=== PATIENT | female | born 2000 | race Hispanic/Latino ===

== ENCOUNTER 2022-02-18 10:47 | Emergency (ER) | payer OTHER ==
[2022-02-18 11:16] LABS: Urine Blood 3+ (Negative); Urine Glucose Trace (Negative); Urine Protein 3+ (Negative); Urine Specific Gravity 1.025 (1.005-1.030)
[2022-02-18] MEDS ORDERED: NA CHLORIDE 0.9% 1,000 ML ONE ×2 (11:19→13:47)
[2022-02-18 11:59] LABS: Absolute Lymphocytes (CBC) 1.1 K/uL (0.7-4.9); Hematocrit 32.2 % (36.0-45.0); Lymphocytes % 6.4 % (15.3-44.8); MCV 91.6 fL (80-100); MPV 9.6 fL (7.6-11.3); RBC Red Blood Cell Count 3.51 M/uL (3.86-4.86)
[2022-02-18 12:23] LABS: Potassium 3.6 mmol/L (3.5-5.1)
[2022-02-18 12:24] LABS: Urine Specific Gravity/Preg 1.025 (1.005-1.030)
[2022-02-18 12:31] LABS: Blood Morphology Comment NOT SEEN (NOT SEEN); Platelet Estimate ADEQ; White Blood Cell Scan OK (OK)
[2022-02-18] MEDS ORDERED: CEFTRIAXONE 1000 MG/VIAL ONE (12:36)
[2022-02-18] MEDS ORDERED: NA CHLORIDE 0.9% 100 ML IV ONE (12:38)
--- NOTE | 2022-02-18 12:55 | RAD REPORT ---
EXAM DESCRIPTION: US - Transvaginal OB - 02/18/2022 12:27 pm CLINICAL HISTORY: ABD CRAMPING, COMPARISON: Transvaginal OB dated 02/16/2022 FINDINGS: No gestational sac or sac remnant seen in the endometrial cavity. No measurable amount of hemorrhagic products seen. Uterus remains normal size with no myometrial abnormality. Left ovary is unremarkable. No left adnexal mass identifiable. Right adnexa is obscured. Right ovary could not be identified. No blood or fluid in the cul de sac. IMPRESSION: No gestational sac or sac remnant. No retained products of conception seen in the endome trial cavity. No left ovarian or left adnexal abnormality. Right ovary and right adnexa are obscured by bowel.
[2022-02-18] MEDS ORDERED: METHYLERGONOVINE 0.2MG/ML AMP IM ONE (13:47)
[2022-02-18] MEDS ORDERED: METHYLERGONOVINE 0.2 MG TAB PO ONE (14:00)
[2022-02-18 14:09] LABS: Absolute Lymphocytes (CBC) 0.8 K/uL (0.7-4.9); Hematocrit 27.6 % (36.0-45.0); Lymphocytes % 4.8 % (15.3-44.8); MCV 91.7 fL (80-100); RBC Red Blood Cell Count 3.01 M/uL (3.86-4.86)
[2022-02-18 14:17] LABS: Blood Morphology Comment NOT SEEN (NOT SEEN); Platelet Estimate ADEQ; White Blood Cell Scan OK (OK)
--- NOTE | 2022-02-18 14:51 | EDPHYS ---
Physician Documentation [facility] Name: Edith Valladares Age: 21 yrs Sex: Female : 2000 Arrival Date: 02/18/2022 Time: 10:48 Bed 18 Private MD: Tom Hernandez B ED Physician Anshu Ramirez HPI: 02/18 13:23 This 21 yrs old Female presents to ER via Ambulatory with complaints of марина Syncope, Vaginal Bleeding, + Preg <12wks. 13:23 The patient has experienced near-syncope, almost passed out, felt dizzy. Onset: The марина symptoms/episode began/occurred 2 day(s) ago. Duration: This was a single episode, that lasted 10 second(s). Context: the episode(s) was witnessed, by family. Associated injury: The patient did not suffer any apparent associated injury. Associated signs and symptoms: Pertinent positives: lightheadedness. Current symptoms: Currently, the patient is not experiencing any symptoms. The patient has not experienced similar symptoms in the past. 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 - Social history:: Smoking status: Patient denies any tobacco usage or history of. ROS: 13:23 Constitutional: Negative for fever, chills, and weight loss, Eyes: Negative for injury, марина pain, redness, and discharge, ENT: Negative for injury, pain, and discharge, Neck: Negative for injury, pain, and swelling, Cardiovascular: Negative for chest pain, palpitations, and edema, Respiratory: Negative for shortness of breath, cough, wheezing, and pleuritic chest pain, Abdomen/GI: Negative for abdominal pain, nausea, vomiting, diarrhea, and constipation, Back: Negative for injury and pain, MS/Extremity: Negative for injury and deformity, Skin: Negative for injury, rash, and discoloration, Neuro: Negative for headache, weakness, numbness, tingling, and seizure, Psych: Negative for depression, anxiety, suicide ideation, homicidal ideation, and hallucinations, Allergy/Immunology: Negative for hives, rash, and allergies, Endocrine: Negative for neck swelling, polydipsia, polyuria, polyphagia, and marked weight changes, Hematologic/Lymphatic: Negative for swollen nodes, abnormal bleeding, and unusual bruising. 13:23 : Positive for pelvic pain, vaginal bleeding. Exam: 13:23 Constitutional: This is a well developed, well nourished patient who is awake, alert, марина and in no acute distress. Head/Face: Normocephalic, atraumatic. Eyes: Pupils equal round and reactive to light, extra-ocular motions intact. Lids and lashes normal. Conjunctiva and sclera are non-icteric and not injected. Cornea within normal limits. Periorbital areas with no swelling, redness, or edema. ENT: Nares patent. No nasal discharge, no septal abnormalities noted. Tympanic membranes are normal and external auditory canals are clear. Oropharynx with no redness, swelling, or masses, exudates, or evidence of obstruction, uvula midline. Mucous membranes moist. Neck: Trachea midline, no thyromegaly or masses palpated, and no cervical lymphadenopathy. Supple, full range of motion without nuchal rigidity, or vertebral point tenderness. No Meningismus. Chest/axilla: Normal chest wall appearance and motion. Nontender with no deformity. No lesions are appreciated. Cardiovascular: Regular rate and rhythm with a normal S1 and S2. No gallops, murmurs, or rubs. Normal PMI, no JVD. No pulse deficits. Respiratory: Lungs have equal breath sounds bilaterally, clear to auscultation and percussion. No rales, rhonchi or wheezes noted. No increased work of breathing, no retractions or nasal flaring. Abdomen/GI: Soft, non-tender, with normal bowel sounds. No distension or tympany. No guarding or rebound. No evidence of tenderness throughout. Back: No spinal tenderness. No costovertebral tenderness. Full range of motion. Skin: Warm, dry with normal turgor. Normal color with no rashes, no lesions, and no evidence of cellulitis. MS/ Extremity: Pulses equal, no cyanosis. Neurovascular intact. Full, normal range of motion. Neuro: Awake and alert, GCS 15, oriented to person, place, time, and situation. Cranial nerves II-XII grossly intact. Motor strength 5/5 in all extremities. Sensory grossly intact. Cerebellar exam normal. Normal gait. Psych: Awake, alert, with orientation to person, place and time. Behavior, mood, and affect are within normal limits. 13:49 : Pelvic Exam: External exam: is normal, Speculum exam: moderate bleeding, blood марина clots in vaginal vault, os that is closed, no tissue in cervix is seen, no tissue in vagina is seen, Rectal exam: is not applicable, Sexual behavior: the patient is sexually active, and reports a single partner. Vital Signs: 10:58 BP 126 / 74; Pulse 105; Resp 16; Temp 98.6(O); Pulse Ox 100% ; Weight 66.68 kg; Height jh5 5 ft. 1 in. (154.94 cm); Pain 0/10; 12:17 BP 92 / 70; Pulse 100; Resp 16; Pulse Ox 99% ; bp 12:50 BP 109 / 62; Pulse 107; Resp 16; Pulse Ox 100% ; bp 10:58 Body Mass Index 27.78 (66.68 kg, 154.94 cm) 5 MDM: 10:49 Patient medically screened. марина 13:23 Differential diagnosis: ectopic , kidney stone, menometrorrhagia, menorrhea, марина nonspecific abdominal pain, ovarian cyst, placenta previa, hemorrhage, uterine fibroids, urinary tract infection. Differential Diagnosis: cardiac arrhythmia, drug effect, idiopathic syncope, , sepsis, vasovagal episode. Data reviewed: vital signs, nurses notes, lab test result(s), radiologic studies, ultrasound. Data interpreted: awake overnight monitor: rate is 107 beats/min, rhythm is regular, Pulse oximetry: on room air is 100 %. Test interpretation: by ED physician or midlevel provider: ECG, plain radiologic studies. Counseling: I had a detailed discussion with the patient and/or guardian regarding: the historical points, exam findings, and any diagnostic results supporting the discharge/admit diagnosis, lab results, radiology results. 02/18 10:50 Order name: Abo/rh Typing; Complete Time: 13: [facility] 02/18 10:50 Order name: Basic Metabolic Panel; Complete Time: 13: [facility] 02/18 10:50 Order name: CBC with Diff; Complete Time: 13: [facility] 02/18 10:50 Order name: Quantitative Hcg; Complete Time: 13: [facility] 02/18 11:16 Order name: Urine Dipstick-Ancillary; Complete Time: 11:28 EDAK 02/18 11:17 Order name: Urine --Ancillary (enter results); Complete Time: 12:25 em 02/18 10:50 Order name: US Transvaginal Ob; Complete Time: 13:02 [facility] 02/18 12:03 Order name: CBC Smear Scan; Complete Time: 13:02 [facility] 02/18 13:45 Order name: CBC with Diff: NOW; Complete Time: 14:49 [facility] 02/18 14:17 Order name: CBC Smear Scan; Complete Time: 14:49 EDAK 02/18 10:50 Order name: IV Saline Lock; Complete Time: 11:52 [facility] 02/18 10:50 Order name: Labs collected and sent; Complete Time: 11:52 [facility] 02/18 10:50 Order name: NPO; Complete Time: 11:18 [facility] 02/18 10:50 Order name: Urine Dipstick-Ancillary (obtain specimen); Complete Time: 11:17 [facility] 02/18 10:50 Order name: Urine Test (obtain specimen); Complete Time: 11:17 [facility] 02/18 11:40 Order name: Pelvic Exam Setup; Complete Time: 13:43 марина Administered Medications: 11:50 Drug: NS 0.9% 1000 ml Route: IV; Rate: 1 bolus; Site: right forearm; bp 12:40 Drug: Rocephin (cefTRIAXone) 1 grams Route: IV; Rate: per protocol; Site: right forearm;bp 13:55 Drug: NS 0.9% 1000 ml Route: IV; Rate: 1 bolus; Site: right forearm; bp 13:55 Drug: METHERgine 0.2 mg Route: IM; Site: right deltoid; bp Disposition Summary: 02/18/22 14:50 Discharge Ordered Location: Home марина Problem: new марина Symptoms: have improved марина Condition: Stable марина Diagnosis - Incomplete spontaneous with other complications - BLEEDING,LEUKOCYTOSIS марина - UTI/ Urinary tract infection, site not specified марина - Elevated white blood cell count марина Followup: марина - With: - When: 1 - 2 days - Reason: Recheck today's complaints, Continuance of care, Re-evaluation by your physician Discharge Instructions: - Discharge Summary Sheet марина - Incomplete Miscarriage марина - Miscarriage марина - Miscarriage, [id number] марина Forms: - Medication Reconciliation Form марина - Thank You Letter марина - Antibiotic Education [facility] - Prescription Opioid Use [facility] Prescriptions: - Methergine 0.2 mg Oral tablet - take 1 tablet by ORAL route every 6 hours; 4 tablet; Refills: 0, Product [facility] Selection Permitted - Augmentin 875-125 mg Oral Tablet - take 1 tablet by ORAL route every 12 hours for 7 days; 44 tablet; Refills: 0, [facility] Product Selection Permitted Signatures: Dispatcher [employer] Anshu Turcios MD MD cha Peltier, Brian, RN RN Jeanette Barrios RN RN jh5
--- NOTE | 2022-02-18 14:51 | ER ---
Nurse's Notes [facility] Name: Edith Valladares Age: 21 yrs Sex: Female : 2000 Arrival Date: 02/18/2022 Time: 10:48 Bed 18 Private MD: Tom Hernandez B Diagnosis: Incomplete spontaneous with other complications-BLEEDING,LEUKOCYTOSIS;UTI/ Urinary tract infection, site not specified;Elevated white blood cell count Presentation: 02/18 10:58 Chief complaint: Patient states: 11 weeks , started spotting a couple days ago [facility] and then heavy bleeding started last night, pt is passing clots. Coronavirus screen: Vaccine status: Patient reports receiving the 1st dose of the Covid vaccine. Client denies travel out of the [place] in the last 14 days. At this time, the client does not indicate any symptoms associated with coronavirus-19. Ebola Screen: Patient negative for fever greater than or equal to 101.5 degrees Fahrenheit, and additional compatible Ebola Virus Disease symptoms Patient denies exposure to infectious person. Patient denies travel to an Ebola-affected area in the 21 days before illness onset. Initial Sepsis Screen: Does the patient meet any 2 criteria? No. Patient's initial sepsis screen is negative. Does the patient have a suspected source of infection? No. Patient's initial sepsis screen is negative. Risk Assessment: Do you want to hurt yourself or someone else? Patient reports no desire to harm self or others. Onset of symptoms was February 16, 2022. 10:58 Method Of Arrival: Ambulatory [facility] 10:58 Acuity: JOSE JUAN 3 [facility] Triage Assessment: 10:59 General: Appears in no apparent distress. uncomfortable, well groomed, well developed, jh5 well nourished, Behavior is calm, cooperative, appropriate for age. Pain: Denies pain. Neuro: Reports a syncopal episode. 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 - Social history:: Smoking status: Patient denies any tobacco usage or history of. Screenin:00 Abuse screen: Denies threats or abuse. Denies injuries from another. Nutritional bp screening: No deficits noted. Tuberculosis screening: No symptoms or risk factors identified. Fall Risk None identified. Assessment: 11:00 General: SEE TRIAGE NOTE. bp 12:00 Neuro: Level of Consciousness is awake, alert, obeys commands, Oriented to Appropriate bp for age. Cardiovascular: Rhythm is sinus tachycardia. Vital Signs: 10:58 BP 126 / 74; Pulse 105; Resp 16; Temp 98.6(O); Pulse Ox 100% ; Weight 66.68 kg; Height 5 5 ft. 1 in. (154.94 cm); Pain 0/10; 12:17 BP 92 / 70; Pulse 100; Resp 16; Pulse Ox 99% ; bp 12:50 BP 109 / 62; Pulse 107; Resp 16; Pulse Ox 100% ; bp 10:58 Body Mass Index 27.78 (66.68 kg, 154.94 cm) 5 ED Course: 10:48 Patient arrived in ED. am2 10:48 Tom Hernandez MD is Private Physician. am2 10:49 Anshu Ramirez MD is Attending Physician. [facility] 10:52 Db Owen, RN is Primary Nurse. bp 10:59 Triage completed. jh5 10:59 Arm band placed on right wrist. 5 11:00 Patient has correct armband on for positive identification. Bed in low position. Call bp light in reach. Side rails up X2. Adult w/ patient. 11:18 US Transvaginal Ob Sent. bp 11:52 Inserted saline lock: 20 gauge in right forearm, using aseptic technique. Blood bp collected. 12:29 US Transvaginal Ob In Process Unspecified. EDMS 14:50 Tom Hernandez MD is Referral Physician. [facility] Administered Medications: 11:50 Drug: NS 0.9% 1000 ml Route: IV; Rate: 1 bolus; Site: right forearm; bp 12:40 Drug: Rocephin (cefTRIAXone) 1 grams Route: IV; Rate: per protocol; Site: right forearm;bp 13:55 Drug: NS 0.9% 1000 ml Route: IV; Rate: 1 bolus; Site: right forearm; bp 13:55 Drug: METHERgine 0.2 mg Route: IM; Site: right deltoid; bp Outcome: 14:50 Discharge ordered by MD. [place] 15:08 Patient left the ED. hb Signatures: Dispatcher [employer] EDAnshu Mosqueda MD MD cha Baxter, Heather RN RN Sangita Pozo Brian, RN RN Jeanette Barrios RN RN jh5
[2022-02-18 15:41] VITALS: TEMP 98.6
[2022-02-18 15:53] VITALS: BP 109/62; O2SAT 100
== END 2022-02-18 15:08 | disposition home or self-care (01) ==
LOC: ER 10:47
DX: O03.1 Delayed or excessive hemorrhage following incomplete spontaneous abortion (principal); O03.39 Incomplete spontaneous abortion with other complications; N39.0 Urinary tract infection, site not specified; D72.829 Elevated white blood cell count, unspecified
CPT/HCPCS: 85025 ×2; 80048; 36415; 86900; 81025; 86901; 88305; 84702; 81003; 76817; 96372; 96374; 99284; J2210; J7030 ×2

== ENCOUNTER 2022-05-09 15:14 | Emergency (ER) | payer OTHER ==
[2022-05-09 15:47] LABS: Urine Blood Trace-intact (Negative); Urine Glucose Negative (Negative); Urine Protein Negative (Negative); Urine Specific Gravity 1.025 (1.005-1.030)
[2022-05-09 15:51] LABS: Absolute Lymphocytes (CBC) 1.7 K/uL (0.7-4.9); Hematocrit 33.1 % (36.0-45.0); Lymphocytes % 16.4 % (15.3-44.8); MCV 82.8 fL (80-100); MPV 9.6 fL (7.6-11.3)
[2022-05-09 15:52] LABS: Urine Specific Gravity/Preg 1.025 (1.005-1.030)
[2022-05-09] MEDS ORDERED: ONDANSETRON 4 MG/2 ML VIAL ONE (15:59)
[2022-05-09] MEDS ORDERED: KETOROLAC 30 MG/ML INJ ONE (15:59)
[2022-05-09 16:03] LABS: Albumin 4.1 g/dL (3.4-5.0); Bilirubin Total 0.3 mg/dL (0.2-1.0); Potassium 3.8 mmol/L (3.5-5.1)
--- NOTE | 2022-05-09 16:29 | RAD REPORT ---
EXAM DESCRIPTION: CTAbdomen Pelvis W Contrast - 05/09/2022 4:21 pm CLINICAL HISTORY: Abdominal pain. right sided abdominal pain COMPARISON: <Comparisons> TECHNIQUE: Biphasic CT imaging of the abdomen and pelvis was performed with 100 ml non-ionic IV cont rast. All CT scans are performed using dose optimization technique as appropriate and may include automated exposure control or mA/KV adjustment according to patient size. FINDINGS: The lung bases are clear. The liver, spleen, pancreas, adrenal glands and kidneys are within normal limits. Mild gallbladder di stention. No bowel obstruction, free air, free fluid or abscess. The appendix is normal. No evidence of signi ficant lymphadenopathy. No suspicious bony findings. IMPRESSION: There is gallbladder distension noted. Recommend gallbladder ultrasound follow-up.
--- NOTE | 2022-05-09 16:51 | RAD REPORT ---
EXAM DESCRIPTION: US - Abdomen Exam Limited - 05/09/2022 4:40 pm CLINICAL HISTORY: right sided abdominal pain COMPARISON: No comparisons FINDINGS: The gallbladder demonstrates small shadowing gallstones. No pericholecystic fluid or gallb ladder wall thickening. The common bile duct is normal measuring 3 mm. The liver demonstrates no findings of intrahepatic biliary dilatation. IMPRESSION: Cholelithiasis.
[2022-05-09 17:56] LABS: SARS-CoV-2 Antigen Rapid Res Negative (Negative)
--- NOTE | 2022-05-09 18:42 | ER ---
Nurse's Notes [facility] Name: Edith Valladares Age: 22 yrs Sex: Female : 2000 Arrival Date: 05/09/2022 Time: 15:17 Bed 25 Private MD: Diagnosis: Choledocholithiasis Presentation: 05/09 15:32 Chief complaint: Patient states: intermittent RUQ abdominal pain x1 month that is worse kb3 today with associated nausea. Coronavirus screen: Vaccine status: Patient reports receiving the 2nd dose of the covid vaccine. Client indicates they have traveled out of the [place] in the last 14 days. Client traveled to: [place] 04/25/2022-05/02/2022. Ebola Screen: Patient negative for fever greater than or equal to 101.5 degrees Fahrenheit, and additional compatible Ebola Virus Disease symptoms Patient denies exposure to infectious person. Patient denies travel to an Ebola-affected area in the 21 days before illness onset. No symptoms or risks identified at this time. Initial Sepsis Screen: Does the patient meet any 2 criteria? No. Patient's initial sepsis screen is negative. Does the patient have a suspected source of infection? No. Patient's initial sepsis screen is negative. Risk Assessment: Do you want to hurt yourself or someone else? Patient reports no desire to harm self or others. Onset of symptoms was May 09, 2022 at 10:00. 15:32 Method Of Arrival: Ambulatory kb3 15:32 Acuity: JOSE JUAN 3 kb3 Triage Assessment: 15:34 General: Appears in no apparent distress. uncomfortable, Behavior is calm, cooperative. kb3 Pain: Complains of pain in right upper quadrant Pain radiates to right mid back Pain currently is 7 out of 10 on a pain scale. Quality of pain is described as sharp, Pain began 4 hours ago. Is continuous. GI: Abd is soft Abdomen is tender to palpation in epigastric area and right upper quadrant Reports upper abdominal pain, nausea. : Denies burning with urination, inability to void, pain urinary frequency, urgency. 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 - Social history:: Smoking status: Patient denies any tobacco usage or history of. Screenin:40 [facility] ED Fall Risk Assessment (Adult) History of falling in the last 3 months, kb3 including since admission No falls in past 3 months (0 pts) Confusion or Disorientation No (0 pts) Intoxicated or Sedated No (0 pts) Impaired Gait No (0 pts) Mobility Assist Device Used No (0 pt) Altered Elimination No (0 pt) Score/Fall Risk Level 0 - 2 = Low Risk Oriented to surroundings, Maintained a safe environment, Educated pt \T\ family on fall prevention, incl call for assistance when getting out of bed, Assessed \T\ reinforced patient's understanding of fall precautions, Provided non-skid footwear, Hourly rounding (assess needs \T\ fall precautionary measures) done, Used ambulatory aids as needed (educated on \T\ assisted with), Used gait belt as appropriate. Abuse screen: Denies threats or abuse. Denies injuries from another. Nutritional screening: No deficits noted. Tuberculosis screening: No symptoms or risk factors identified. Assessment: 15:40 General: see triage notes. kb3 15:40 GI: Bowel sounds present X 4 quads. kb3 18:45 Reassessment: Patient appears in no apparent distress at this time. No changes from kb3 previously documented assessment. Patient and/or family updated on plan of care and expected duration. Pain level reassessed. General: Pt aware of pending transfer. No questions at this time. Reports pain is minimal. Advised pt to call if pain or nausea returns. Call light within reach. 19:24 General: Attempted to call report. Spoke to Xiang VALDIVIA who refused to take report kb3 stating that he is still in shift change report.. 19:54 General: Report called to [facility]. Spoke with Jade VALDIVIA. kb3 Vital Signs: 15:32 BP 123 / 84; Pulse 110; Resp 18; Temp 98.7; Pulse Ox 100% ; Weight 58.97 kg; Height 5 kb3 ft. 1 in. (154.94 cm); Pain 7/10; 16:50 BP 117 / 82; Pulse 107; Resp 18; Pulse Ox 100% ; kb3 17:00 BP 120 / 76; Pulse 117; Resp 20; Pulse Ox 100% on R/A; kb3 18:00 BP 118 / 70; Pulse 113; Resp 20; Temp 99; Pulse Ox 100% on R/A; kb3 15:32 Body Mass Index 24.56 (58.97 kg, 154.94 cm) kb3 ED Course: 15:17 Patient arrived in ED. am2 15:17 Chauncey Andrews PA is PHCP. m 15:17 Isaias Echevarria MD is Attending Physician. jmm 15:32 Julia Stubbs, RN is Primary Nurse. kb3 15:34 Triage completed. kb3 15:34 Arm band placed on right wrist. Patient placed in an exam room, on a stretcher. kb3 15:40 Patient has correct armband on for positive identification. Placed in gown. Bed in low kb3 position. Call light in reach. Side rails up X 1. Warm blanket given. 15:40 Inserted saline lock: 20 gauge in left antecubital area, using aseptic technique. Blood kb3 collected. 16:[address] via wheelchair. kb3 16:23 CT Abd/Pelvis - IV Contrast Only In Process Unspecified. EDMS 16:42 US Abdomen Limited In Process Unspecified. EDMS 17:38 SARS RAPID Sent. mm9 17:38 COVID swab sent to lab. mm9 19:55 No provider procedures requiring assistance completed. kb3 19:55 Patient transferred, IV remains in place. kb3 Administered Medications: 16:00 Drug: Zofran (Ondansetron) 4 mg Route: IVP; Site: left antecubital; kb3 16:48 Follow up: Response: No adverse reaction; Nausea is decreased kb3 18:33 Follow up: Response: No adverse reaction; Pain is decreased kb3 16:00 Drug: Ketorolac 30 mg Route: IVP; Site: left antecubital; kb3 16:47 Follow up: Response: No adverse reaction; Pain is decreased kb3 18:33 Follow up: Response: No adverse reaction; Pain is decreased kb3 Medication: 15:40 VIS not applicable for this client. kb3 Outcome: 18:41 ER care complete, transfer ordered by . jmm 19:55 Transferred by ground EMS to [facility]. kb3 19:55 Condition: stable 19:55 Instructed on the need for transfer. 20:23 Patient left the ED. vc1 Signatures: Dispatcher [employer] EDMS Chauncey Andrews PA PA jmm Moreno, Amanda am2 Veronica Stokes RN RN vc1 Julia Stubbs RN RN kb3 Adelita Valladares mm9 Corrections: (The following items were deleted from the chart) 16:51 15:32 BP 123 / 84; Pulse 110bpm; Resp 18bpm; Pulse Ox 100%; 58.97 kg; Height 5 ft. 1 kb3 in.; BMI: 24.5; Pain 7/10; kb3
--- NOTE | 2022-05-09 18:42 | EDPHYS ---
Physician Documentation [facility] Name: Edith Valladares Age: 22 yrs Sex: Female : 2000 Arrival Date: 05/09/2022 Time: 15:17 Bed 25 Private MD: ED Physician Isaias Echevarria HPI: 05/09 15:30 This 22 yrs old Female presents to ER via Ambulatory with complaints of jmm Abdominal Pain - RUQ. 15:30 The patient presents with abdominal pain. Onset: The symptoms/episode began/occurred jmm gradually, 1 month(s) ago. The symptoms radiate to right back. Is a 22-year-old female with no chronic medical conditions and presents emerged part with complaints of epigastric abdominal pain which radiates to her back. Symptoms began approximately a month ago. Pain intensified over the past day. Denies any vomiting or diarrhea. Denies fever.. 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 - Social history:: Smoking status: Patient denies any tobacco usage or history of. ROS: 15:30 Constitutional: Negative for fever, chills, and weight loss, Cardiovascular: Negative jmm for chest pain, palpitations, and edema, Respiratory: Negative for shortness of breath, cough, wheezing, and pleuritic chest pain. 15:30 Abdomen/GI: Positive for abdominal pain. 15:30 Back: Positive for radiated pain. 15:30 All other systems are negative. Exam: 15:30 Constitutional: This is a well developed, well nourished patient who is awake, alert, jmm and in no acute distress. Head/Face: atraumatic. Eyes: EOMI, no conjunctival erythema appreciated ENT: Moist Mucus Membranes Neck: Trachea midline, Supple Chest/axilla: Normal chest wall appearance and motion. Cardiovascular: Regular rate and rhythm. No edema appreciated Respiratory: Normal respirations, no respiratory distress appreciated 15:30 Back: Normal ROM Skin: General appearance color normal MS/ Extremity: Moves all extremities, no obvious deformities appreciated, no edema noted to the lower extremities Neuro: Awake and alert Psych: Behavior is normal, Mood is normal, Patient is cooperative and pleasant 15:30 Abdomen/GI: Inspection: abdomen appears normal, Bowel sounds: normal, Palpation: soft, moderate abdominal tenderness, in the right upper quadrant. Vital Signs: 15:32 BP 123 / 84; Pulse 110; Resp 18; Temp 98.7; Pulse Ox 100% ; Weight 58.97 kg; Height 5 kb3 ft. 1 in. (154.94 cm); Pain 7/10; 16:50 BP 117 / 82; Pulse 107; Resp 18; Pulse Ox 100% ; kb3 17:00 BP 120 / 76; Pulse 117; Resp 20; Pulse Ox 100% on R/A; kb3 18:00 BP 118 / 70; Pulse 113; Resp 20; Temp 99; Pulse Ox 100% on R/A; kb3 15:32 Body Mass Index 24.56 (58.97 kg, 154.94 cm) kb3 MDM: 15:30 Patient medically screened. [facility] 18:39 Data reviewed: vital signs, nurses notes. Counseling: I had a detailed discussion with [facility] the patient and/or guardian regarding: the historical points, exam findings, and any diagnostic results supporting the discharge/admit diagnosis, lab results, radiology results, the need to transfer to another facility. 19:06 ED course: I discussed the patient with Dr. He and Dr. Muñoz whom accepted the patient [facility] to their service.. 05/09 15:31 Order name: CBC with Diff; Complete Time: 16:05 [facility] 05/09 15:31 Order name: CMP; Complete Time: 16:05 [facility] 05/09 15:31 Order name: Lipase; Complete Time: 16:05 [facility] 05/09 15:47 Order name: Urine Dipstick-Ancillary; Complete Time: 16:05 [facility] 05/09 15:48 Order name: Urine --Ancillary (enter results); Complete Time: 16:05 [facility] 05/09 17:32 Order name: SARS RAPID; Complete Time: 17:59 [facility] 05/09 15:31 Order name: CT Abd/Pelvis - IV Contrast Only; Complete Time: 16:35 [facility] 05/09 15:31 Order name: IV Saline Lock; Complete Time: 15:41 [facility] 05/09 15:31 Order name: Labs collected and sent; Complete Time: 15:41 [facility] 05/09 15:31 Order name: Urine Dipstick-Ancillary (obtain specimen); Complete Time: 15:41 [facility] 05/09 15:31 Order name: Urine Test (obtain specimen); Complete Time: 15:41 [facility] 05/09 15:32 Order name: US Abdomen Limited; Complete Time: 16:56 [facility] Administered Medications: 16:00 Drug: Zofran (Ondansetron) 4 mg Route: IVP; Site: left antecubital; kb3 16:48 Follow up: Response: No adverse reaction; Nausea is decreased kb3 18:33 Follow up: Response: No adverse reaction; Pain is decreased kb3 16:00 Drug: Ketorolac 30 mg Route: IVP; Site: left antecubital; kb3 16:47 Follow up: Response: No adverse reaction; Pain is decreased kb3 18:33 Follow up: Response: No adverse reaction; Pain is decreased kb3 Disposition Summary: 05/09/22 18:41 Transfer Ordered Transfer Location: [facility] Reason: Higher level of care jmm Condition: Stable jmm Problem: new jmm Symptoms: have improved jmm Accepting Physician: Dr. Muñoz(05/09/22 20:23) vc1 Diagnosis - Choledocholithiasis [facility] Discharge Instructions: - Discharge Summary Sheet kj1 Forms: - Medication Reconciliation Form jm - SBAR form kj1 Addendum: 05/12/2022 19:54 Co-signature as Attending Physician, Isaias Echevarria MD I reviewed the patient's care r n provided by the Advanced Practice Provider and agree with the diagnosis and treatment plan. Signatures: Dispatcher [employer] EDChauncey Crisostomo PA PA jmm Nieto, Roman, MD MD rn Calcote, Vanessa, RN RN vc1 Julia Stubbs, SKIP RN kb3 Corrections: (The following items were deleted from the chart) 05/09 20:23 18:41 Dr. Wanda yan vc1
[2022-05-09 20:45] VITALS: O2SAT 100
[2022-05-09 20:49] VITALS: BP 118/70; TEMP 99
== END 2022-05-09 20:23 | disposition short-term general hospital (02) ==
LOC: ER 15:14
DX: K80.50 Calculus of bile duct without cholangitis or cholecystitis without obstruction (principal); Z20.822 Contact with and (suspected) exposure to COVID-19
CPT/HCPCS: 85025; 36415; 81025; 81003; 83690; 80053; 74177; 76705; 96375; 96374; 99285; 87811; Q9967; J2405